=== PATIENT | male | born 1955 | race Caucasian/White ===

== ENCOUNTER 2019-04-04 08:50 | Outpatient (CLI) | payer OTHER, SELFPAY ==
--- NOTE | 2019-04-04 09:25 | CT_ITS ---
WS: [id number] CT ANGIOGRAPHY ABDOMEN AND PELVIS HISTORY: AAA TECHNIQUE: Contiguous axial images through the abdomen and pelvis. Precontrast, angiogram and postcon trast imaging submitted. Reformation images reviewed. All CT scans at [facility] use at le ast one of these dose optimization techniques: automated exposure control; mA and/or kV adjustment pe r patient size (includes targeted exams where dose is matched to clinical indication); or iterative r econstruction. CONTRAST: Omnipaque 350; 95 mL IV. DLP: 3137.72 mGycm COMPARISON: 01/07/2019 Chronic emphysematous changes at the lung bases. Small hiatal hernia. Normal size heart. Liver, splee n, gallbladder, pancreas and adrenal glands remain within normal limits. No adenopathy or fluid. No r enal obstruction or mass. Abdominal aorta: Since the prior examination endovascular stent grafting has been placed beginning at the level of the SMA and extending into the proximal common iliac arteries. [place] aneurysm measures 4.3 x 4.0 cm. No enlargement since the prior examination. No periaortic hematoma. No evidence for an endovascular leak. Gastric artery arises above the celiac axis. Celiac axis, SMA and renal arteries are patent. OWEN is not identified. LEFT renal vein is circumaortic. Decreased enhancement involving the lower pole of the RIGHT kidney is new. Small accessory renal marlena ry feeding the lower pole is identified and may have been partially obstructed. It still appears to b e patent on today's study. The main renal artery is patent. There is also an accessory renal artery o n the LEFT which is patent. Normal appearance of the GI tract. No obstruction. No free fluid in the pelvis. Post procedure change s at the RIGHT groin. CT/CT angio abdomen pelvis 82575 IMPRESSION: 1. Interval placement of an endovascular aortic graft with no complications or endoluminal leak. 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 2. New mild ischemic changes lower pole RIGHT kidney since 01/07/2019. Vascula r graft may be partially obstructing an accessory renal artery which extends to the lower pole.
[2019-04-04] MEDS: iohexol 350 mg/mL 100 mL Btl IV (09:45)
== END 2019-04-04 08:51 | disposition home or self-care (01) ==
LOC: RADWPI 08:55
PROVIDERS: Family Provider Emergency Medicine Emergency Medical Services; PCP Emergency Medicine Emergency Medical Services; Visit Provider Thoracic Surgery (Cardiothoracic Vascular Surgery)
DX: I71.4 Abdominal aortic aneurysm, without rupture (principal); N28.0 Ischemia and infarction of kidney
CPT/HCPCS: 74174; Q9967

== ENCOUNTER 2019-04-17 10:52 | Emergency (ER) | payer OTHER, SELFPAY ==
[2019-04-17] VITALS (8 sets, daily range): BP systolic 161–188; BP diastolic 99–121; PULSE 78–95; RESP 16–20; TEMP 36.3; O2SAT 95–96; BMI 32.3
--- NOTE | 2019-04-17 11:02 | PC.NURSE ---
Patient reports that he had a recent procedure Feb 26. Patient states he had an aortic aneurysm. Patient reports that he has never had high blood pressure in the past. Patient reports that this past Sunday his blood pressure began to increase. Patient states he has had shortness of breath and a headache along with the high blood pressure. Patient reports that he does not feel like the shortness of breath has anything to do with the high BP because he has had congestion. Patient states last Sunday he did have some blurry vision.
--- NOTE | 2019-04-17 11:23 | ED_ITS ---
Entered by Raquel Blount, acting as scribe for Selina Thomas MD, [facility] [place] Apr 17, 2019 10:52 HPI - General Adult General: Chief complaint: General Medical Stated complaint: high blood pressure Time Seen by Provider: 04/17/19 11:14 Source: patient and RN notes reviewed Mode of arrival: ambulatory Limitations: no limitations History of Present Illness: HPI narrative: 63 yo male presents to ED with complaints of hypertension. The patient was referred to the ED by his PCP Dr Smith/ALEM. The patient said he has never had high blood pressure before. His spouse is a nurse and has been checking his blood pressure. The patient had an abdominal AAA in February 26 2019 (femural approach). The spouse said last Sunday she found the patient slumped in his chair. She said his eyes were glassy and he had a headache. He said he has had a headache intermittently lately. He said he is congested. He has been hearing his heart beat in his ears. He said he will get squiggly lines in his vision and has been dizzy and light headed (was sent home from work on Sunday due to symptoms). He said his headache is sometimes across the front, on the L side, or on the R side. His spouse states the patient has intermittently ran a low grade fever at home, up to 100.6 (the patient is afebrile here). complaint: HTN Onset (ago): week(s) (1) Location: head and eyes Radiation: non-radiation Severity: severe Quality: aching Pain Consistency: intermittent Relieving factors: none Exacerbating factors: none Associated symptoms: Reports chest pain and headache(s); Deny dyspnea, nausea, rash, palpitations or vomiting Treatments prior to arrival: NSAID Review of Systems General: Reports: 10 or more systems reviewed and unremarkable except in HPI and below Const: Denies: chills or body aches ENMT: Denies: throat pain, enlarged tonsils, painful swallowing, hoarseness, mouth pain or swelling of lips/tongue Card: Reports: chest pain; Denies: palpitations, irregular heart rhythm, edema or swelling of feet/ankles Resp: Denies: shortness of breath, productive cough or non-productive cough GI: Denies: abdominal pain, nausea or vomiting : Denies: flank pain, painful urination, urinary frequency, urinary urgency or urinary hesitancy Musc: Reports: extremity pain (left shoulder), joint pain (left shoulder) and limited range of motion; Denies: neck pain, back pain or extremity swelling Skin/Breast: Denies: rash, itching or redness Neuro: Reports: headache Endo: Denies: excessive urination, excessive thirst or tired all the time PFSH ED PFSH: Statuses (acute, chronic, etc) shown below reflect problem list status as previously entered and may not be historically accurate Social History Smoking and tobacco status: former smoker Physical Exam Const: COMMON NORMALS: no apparent distress, average body habitus, oriented x3, no limitations, healthy appearing, alert and well nourished HENMT: COMMON NORMALS: normocephalic, head/scalp atraumatic and moist oral mucous membranes HEAD & SCALP: normocephalic and atraumatic Eye: COMMON NORMALS: PERRL, EOMs intact bilaterally, conjunctivae normal and no scleral icterus CONJUNCTIVA: Yes conjunctivae normal PUPIL: Yes PERRL Neck/C-Spine: COMMON NORMALS: full ROM, supple, no meningeal signs, no JVD and no carotid bruits Chest: COMMONS NORMALS: inspection of chest normal and palpation of chest normal Resp: COMMON NORMALS: normal respiratory effort, no retractions, no use of accessory muscles, clear to auscultation bilaterally and percussion normal AUSCULTATION: clear to auscultation bilaterally PERCUSSION: percussion normal Cardio: COMMON NORMALS: no JVD, regular rate, regular rhythm, S1 normal heart sound, S2 normal heart sound, no gallops, no clicks, no murmurs, no rub and peripheral pulses 2+ throughout RATE: regular rate RHYTHM: regular rhythm HEART SOUNDS: S1 normal and S2 normal PERIPHERAL PULSES: pulses 2+ throughout GI: COMMON NORMALS: normal to inspection, nondistended, normoactive bowel sounds, soft to palpation, non-tender, no hepatosplenomegaly, no masses and no bruits PALPATION: Yes soft and Yes no hepatosplenomegaly : COMMON NORMALS: Yes no CVA tenderness BLADDER/KIDNEY EXAM: Yes no CVA tenderness Back/Pelvis: COMMON NORMALS: no CVA tenderness Extremity: COMMON NORMALS: normal to inspection, full ROM, normal capillary refill, no calf tenderness and no pedal edema Neuro: COMMON NORMALS: oriented x3 SENSORIUM/ORIENTATION: Yes alert MENINGEAL SIGNS: Yes no meningeal signs Skin: COMMON NORMALS: no rashes or lesions noted, no wounds, skin turgor normal, no jaundice, no petechiae and no mottling GENERAL SKIN EXAM: no rashes or lesions noted and turgor normal Course Reevaluation(s): Reevaluation #1: Discussed his labs and imaging with the jill ent and his . Positive for influenza. Renal function decreased but not significant. TSH normal. His elevated BP may be secondary to being ill with influenza. He is out of the window for Tamiflu. Time: 14:03 Vital Signs: Vital signs: Vital Signs Temperature 97.4 F L 04/17/19 10:56 Pulse Rate 78 04/17/19 16:16 Respiratory Rate 16 04/17/19 16:16 Blood Pressure 177/108 04/17/19 16:16 Pulse Oximetry 95 04/17/19 16:16 MDM - General Adult MDM Narrative: Medical decision making narrative: 63-year-old male gentleman with no prior history of hypertension presents to the emergency department with complaints of elevated blood pressure. He had also had a low-grade fever for several days. Symptoms started generally about 1 week ago. Evaluation here in the emergency department was significant for positive influenza A. Blood pressure was also significantly elevated that required multiple doses of antihypertensives to bring it down to an acceptable level. The patient does not want to be started on an antihypertensive and will see his primary care provider tomorrow and have a discussion as to whether he needs to be started on something. He initially had a headache but that resolved following medication. EKG unremarkable, renal function without any alarming labs. Medical Records: Attestation: I reviewed the patient's medical records. Lab Data: Attestation: I reviewed the patient's lab results. Labs: Lab Results 04/17/19 04/17/19 04/17/19 Range/Units 11:10 11:10 12:06 WBC 6.2 (4.0-10.0) 10^3/ uL RBC 5.19 (4.1-5.3) 10^6/u L Hgb 15.7 (11.7-16.6) g/dL Hct 45.6 (42.0-52.0) % MCV 87.9 (80-94) fL MCH 30.3 (28.0-34.0) pg MCHC 34.4 (30.0-36.0) g/dL RDW 12.6 (12.1-15.1) % Plt Count 208 (130-400) 10^3/c mm MPV 9.7 (7.4-10.4) fL Neut % (Auto) 42.2 % Lymph % (Auto) 35.7 % Campbell % (Auto) 16.4 % Eos % (Auto) 5.1 % Baso % (Auto) 0.6 % Neut # (Auto) 2.6 (1.8-7.7) 10^3/u L Lymph # (Auto) 2.2 (0.8-4.8) 10^3/u L Campbell # (Auto) 1.0 H (0.2-0.9) 10^3/u L Eos # (Auto) 0.3 (0.0-0.8) 10^3/u L Baso # (Auto) 0.0 (0.0-0.1) 10^3/u L Nucleated RBC % (a uto) 0 % Nucleated RBCs # 0.0 /100WBC Sodium 139 (136-145) mmol/L Potassium 3.5 (3.5-5.1) mmol/L Chloride 101 (98-107) mmol/L Carbon Dioxide 25 (22-29) mmol/L Anion Gap 16.5 (5-19) BUN 10 (8-23) mg/dL Creatinine 1.1 (0.7-1.2) mg/dL GFR Calculation 67.8 L (90-130) mL/min Glucose 117 H (74-106) mg/dL Calcium 9.3 (8.5-10.5) mg/dL Total Bilirubin 0.7 (0.15-1.2) mg/dL AST 28 (0-40) U/L ALT 26 (0-41) U/L Alkaline Phosphata se 121 (40-130) IU/L Total Protein 8.1 (6.6-8.7) g/dL Albumin 4.0 (3.5-5.2) g/dL Globulin 4.1 (1.3-4.6) g/dL TSH 2.86 (0.27-4.20) uIU/ mL Urine Color (Yellow) Urine Appearance (CLEAR) Urine pH (5-7) Ur Specific Gravit y (1.005-1.030) Urine Protein (Negative) Urine Glucose (UA) (Normal) Urine Ketones (Negative) Urine Occult Blood (Negative) Urine Nitrate (Negative) Urine Bilirubin (NEGATIVE) Urine Urobilinogen (Negative) mg/dL Ur Leukocyte Lady ase (Negative) Urine RBC (0-2) /hpf Urine WBC (0-5) /hpf Ur Squamous Epith Cells (0-5) Urine Bacteria (NONE) Hyaline Casts Urine Mucus Influenza Type A A g Positive H (Negative) POC Influenza B Ag Negative (Negative) 04/17/19 Range/Units 12:08 WBC (4.0-10.0) 10^3/ uL RBC (4.1-5.3) 10^6/u L Hgb (11.7-16.6) g/dL Hct (42.0-52.0) % MCV (80-94) fL MCH (28.0-34.0) pg MCHC (30.0-36.0) g/dL RDW (12.1-15.1) % Plt Count (130-400) 10^3/c mm MPV (7.4-10.4) fL Neut % (Auto) % Lymph % (Auto) % Campbell % (Auto) % Eos % (Auto) % Baso % (Auto) % Neut # (Auto) (1.8-7.7) 10^3/u L Lymph # (Auto) (0.8-4.8) 10^3/u L Campbell # (Auto) (0.2-0.9) 10^3/u L Eos # (Auto) (0.0-0.8) 10^3/u L Baso # (Auto) (0.0-0.1) 10^3/u L Nucleated RBC % (a uto) % Nucleated RBCs # /100WBC Sodium (136-145) mmol/L Potassium (3.5-5.1) mmol/L Chloride (98-107) mmol/L Carbon Dioxide (22-29) mmol/L Anion Gap (5-19) BUN (8-23) mg/dL Creatinine (0.7-1.2) mg/dL GFR Calculation (90-130) mL/min Glucose (74-106) mg/dL Calcium (8.5-10.5) mg/dL Total Bilirubin (0.15-1.2) mg/dL AST (0-40) U/L ALT (0-41) U/L Alkaline Phosphata se (40-130) IU/L Total Protein (6.6-8.7) g/dL Albumin (3.5-5.2) g/dL Globulin (1.3-4.6) g/dL TSH (0.27-4.20) uIU/ mL Urine Color Yellow (Yellow) Urine Appearance Clear (CLEAR) Urine pH 5 (5-7) Ur Specific Gravit y 1.020 (1.005-1.030) Urine Protein 1+ H (Negative) Urine Glucose (UA) Norm (Normal) Urine Ketones 1+ H (Negative) Urine Occult Blood 2+ H (Negative) Urine Nitrate Negative (Negative) Urine Bilirubin Neg (NEGATIVE) Urine Urobilinogen 1 H (Negative) mg/dL Ur Leukocyte Lady ase Negative (Negative) Urine RBC 0-4 H (0-2) /hpf Urine WBC 0-4 H (0-5) /hpf Ur Squamous Epith Cells 0-4 H (0-5) Urine Bacteria Trace (NONE) Hyaline Casts 0-4 H Urine Mucus 1+ Influenza Type A A g (Negative) POC Influenza B Ag (Negative) Imaging Data^: CT Head: Radiologist's impression: [address] [address] [address] Scan Report Signed Patient: Hussein Bedoya Unit #: [id number] : 1955 Age/Sex: 63 / M ADM Date: 04/17/19 Loc: ER Room/Bed: Attending Dr: Ordering Provider/Ordering MD: Selina Thomas MD, [facility] [place] Date of Service: 04/17/19 Procedure(s): CT head wo con* [id number] Accession Number(s): [id number] Report Number: [id number] WS: [id number] CT HEAD NONCONTRAST HISTORY: hypertensive urgency, headache TECHNIQUE: Contiguous axial imaging performed through the brain in 2.5 mm imaging. Bone and soft tissue windows. Sagittal and coronal reformats reviewed. All CT scans at [facility] use at least one of these dose optimization techniques: automated exposure control; mA and/or kV adjustment per patient size (includes targeted exams where dose is matched to clinical indication); or iterative reconstruction. DLP: 874.71 mGy.cm COMPARISON: None available. No acute intracranial hemorrhage, midline shift or mass effect. No atrophy or prior infarcts or herniation. Ventricles: Normal size with no hydrocephalus. No inferior displacement of cerebellar tonsils. Paranasal sinuses: Mild mucoperiosteal thickening in the LEFT maxillary sinus. No air-fluid levels. Mastoid air cells: Well pneumatized. Calvarium and scalp: Skull is intact with no soft tissue edema or swelling. CT/CT head wo con* [id number] IMPRESSION: Negative head CT. Dictated By: Monique Levine DO Signed By: Monique Levine DO Signed Date/Time: 04/17/19 1246 DD/ CXR: Radiologist's impression: [address] [address] XRay Report Signed Patient: Hussein Bedoya Unit #: [id number] : 1955 Age/Sex: 63 / M ADM Date: 04/17/19 Loc: ER Room/Bed: Attending Dr: Ordering Provider/Ordering MD: Selina Thomas MD, [facility] [place] Date of Service: 04/17/19 Procedure(s): XR chest 2V* [id number] Accession Number(s): [id number] Report Number: [id number] WS: [id number] Chest 2 views, 04/17/2019 Clinical Data: hypertension Comparison: PA and lateral chest, 02/24/2019 Findings: No nodules, masses or effusions are seen. The heart is normal. The pulmonary vascularity is not increased. No pneumonia or pneumothorax is seen. The aortic arch and descending aorta are minimally tortuous XR/XR chest 2V* [id number] Impression: Atherosclerosis. Dictated By: Bernice Marino MD Signed By: Bernice Marino MD Signed Date/Time: 04/17/19 1219 DD/ EKG Data^: EKG 1: Attestation: I personally reviewed and interpreted this EKG as follows: EKG interpretation date: 04/17/19 EKG interpretation time: 12:44 Interpretation: Normal sinus rhythm. Heart rate 86. Incomplete right bundle branch block. Q waves in 2 3 aVF. Computer generated interpretation: Chest X-Ray 04/17/19 11:48 Impression: Atherosclerosis. Head CT 04/17/19 11:49 IMPRESSION: Negative head CT. Discharge Plan Discharge Patient Disposition: Home, Self-Care Clinical Impression: Influenza A, Asymptomatic hypertensive urgency Condition: Stable Discharge Orders: Discharge Order (Routine); Ordered 04/17/19 Ordered By: Selina Thomas Referrals: Toney Smith, [Primary Care Provider] - 04/18/19 (Hypertensive urgency) Patient Instructions: Influenza (ED), Hypertension (ED) Activity Restrictions/Additional Instructions: Return for any new or worsening symptoms. Follow-up with your primary care provider tomorrow to see if you need to be started on medicines for blood pressure. Drink plenty of fluids to keep well-hydrated. Take Tylenol or ibuprofen as needed for body aches or fever. Coding Level of Care Code ED Licensing Worker for Chg Fwd Exam Problem Focused The documentation recorded by the Mine oneal Valerie R, accurately reflects the service I personally performed and the decisions made by William knott Adegoke I, MD, [facility] [place] Apr 17, 2019 10:52
--- NOTE | 2019-04-17 11:48 | XR_ITS ---
WS: [id number] Chest 2 views, 04/17/2019 Clinical Data: hypertension Comparison: PA and lateral chest, 02/24/2019 Findings: No nodules, masses or effusions are seen. The heart is normal. The pulmonary vascularity is not increased. No pneumonia or pneumothorax is seen. The aortic arch and descending aorta are minima lly tortuous XR/XR chest 2V* [id number] Impression: Atherosclerosis.
--- NOTE | 2019-04-17 11:48 | ECG_ITS ---
Measurements Intervals [place] Rate: 86 P: 60 LA: 132 QRS: 48 QRSD: 117 T: 66 QT: 381 QTc: 457 SINUS RHYTHM INCOMPLETE RIGHT BUNDLE BRANCH BLOCK [90+ ms QRS DURATION, TERMINAL R IN V1/V2, 40+ ms S IN I/aVL/V4/V5/V6] POSSIBLE INFERIOR MYOCARDIAL INFARCTION , PROBABLY OLD [30 ms Q WAVE IN II/aVF] Compared to ECG 02/24/2019 09:02:13 Myocardial infarct finding now present Electronically Signed On 04-17-2019 17:36:30 POLITICAL RESEARCHER by Wayne Chamberlain M.D. [email or web address]
--- NOTE | 2019-04-17 11:49 | CT_ITS ---
WS: [id number] CT HEAD NONCONTRAST HISTORY: hypertensive urgency, headache TECHNIQUE: Contiguous axial imaging performed through the brain in 2.5 mm imaging. Bone and soft tiss ue windows. Sagittal and coronal reformats reviewed. All CT scans at [facility] use at ast one of these dose optimization techniques: automated exposure control; mA and/or kV adjustment pe r patient size (includes targeted exams where dose is matched to clinical indication); or iterative r econstruction. DLP: 874.71 mGy.cm COMPARISON: None available. No acute intracranial hemorrhage, midline shift or mass effect. No atrophy or prior infarcts or herniation. Ventricles: Normal size with no hydrocephalus. No inferior displacement of cerebellar tonsils. Paranasal sinuses: Mild mucoperiosteal thickening in the LEFT maxillary sinus. No air-fluid levels. Mastoid air cells: Well pneumatized. Calvarium and scalp: Skull is intact with no soft tissue edema or swelling. CT/CT head wo con* [id number] IMPRESSION: Negative head CT.
[2019-04-17] MEDS: diphenhydrAMINE 50 mg/mL SDV 1mL 25 MG IVP (11:57)
[2019-04-17] MEDS: ketorolac 30 mg/mL INJ 15 MG IVP (12:01)
[2019-04-17 12:25] LABS: Basophils % 0.6 %; Eosinophils # 0.3 10^3/uL (0.0-0.8); Eosinophils % 5.1 %; Hematocrit 45.6 % (42.0-52.0); Hemoglobin 15.7 g/dL (11.7-16.6); Lymphocytes # 2.2 10^3/uL (0.8-4.8); Lymphocytes % 35.7 %; Mean Corpuscular HGB Conc 34.4 g/dL (30.0-36.0); Mean Corpuscular Hemoglobin 30.3 pg (28.0-34.0); Mean Corpuscular Volume 87.9 fL (80-94); Mean Platelet Volume 9.7 fL (7.4-10.4); Monocytes % 16.4 %; Neutrophils # 2.6 10^3/uL (1.8-7.7); Neutrophils % 42.2 %; Nucleated Red Blood Cells % 0 %; Platelet Count 208 10^3/cmm (130-400); Red Blood Count 5.19 10^6/uL (4.1-5.3); Red Cell Distribution Width 12.6 % (12.1-15.1); White Blood Count 6.2 10^3/uL (4.0-10.0)
[2019-04-17 12:27] LABS: Protein Urine 1+ (Negative); Urine Appearance Clear (CLEAR); Urine Color Yellow (Yellow); pH Urine 5 (5-7)
[2019-04-17 12:28] LABS: Add Urine Microscopic? YES; Bilirubin Urine Neg (NEGATIVE); Blood Urine 2+ (Negative); Glucose Urine UA Norm (Normal); Ketones Urine 1+ (Negative); Leukocyte Esterase Urine Negative (Negative); Nitrate Urine Negative (Negative); Urobilinogen Urine 1 mg/dL (Negative)
[2019-04-17 12:36] LABS: Influenza A by IFA Positive (Negative); Influenza B by IFA Negative (Negative)
[2019-04-17 12:40] LABS: Add Urine Culture? No; Bacteria Urine TRACE; Hyaline Casts Urine 0-4; Mucus Urine 1+; RBC Urine 0-4 /hpf (0-2); Squamous Epithelial Cell Urine 0-4 (0-5); WBC Urine 0-4 /hpf (0-5)
[2019-04-17 12:50] LABS: Alanine Aminotransferase 26 U/L (0-41); Alkaline Phosphatase 121 IU/L (40-130); Anion Gap 16.5 (5-19); Aspartate Amino Transferase 28 U/L (0-40); Blood Urea Nitrogen 10 mg/dL (8-23); Calcium 9.3 mg/dL (8.5-10.5); Carbon Dioxide 25 mmol/L (22-29); Chloride 101 mmol/L (98-107); Globulin 4.1 g/dL (1.3-4.6); Glomerular Filtration Rate 67.8 mL/min (90-130); Glucose 117 mg/dL (74-106); Potassium 3.5 mmol/L (3.5-5.1); Sodium 139 mmol/L (136-145); Thyroid Stimulating Hormone 2.86 uIU/mL (0.27-4.20); Total Bilirubin 0.7 mg/dL (0.15-1.2); Total Protein 8.1 g/dL (6.6-8.7)
[2019-04-17] MEDS: cloNIDine 0.1 mg Tablet PO (14:10)
[2019-04-17] MEDS: metoprolol tartrate 1 mg/1 mL SDV 5 mL 5 MG IV ×2 (14:46→15:21)
[2019-04-17] MEDS: hyDRALAzine 20 mg/mL INJ 1 mL 10 MG IVP (16:13)
== END 2019-04-17 17:02 | disposition home or self-care (01) ==
PROVIDERS: Emergency Provider Family Medicine; Family Provider Emergency Medicine Emergency Medical Services; PCP Emergency Medicine Emergency Medical Services
DX: J10.1 Influenza due to other identified influenza virus with other respiratory manifestations (principal); I16.0 Hypertensive urgency; Z87.891 Personal history of nicotine dependence
CPT/HCPCS: 70450; 71046; 80053; 81001; 84443; 85025; 87804; 93005; 96374; 96375; 96376; 99283; 99285; J0360; J1200; J1885; J3490

== ENCOUNTER 2019-07-04 07:56 | Outpatient (CLI) | payer OTHER, SELFPAY ==
--- NOTE | 2019-07-04 08:00 | USCV_ITS ---
Hussein Bedoya Age: 63 Gender: M : 1955 Exam Date: 07/04/2019 08:11 Ordering Phys: Technologist: Belle Denise Exam Location: [facility] [place] Indication: AAA HISTORY: Diameter (cm) AP x Transverse x Length Velocity (cm/s) Waveform Prox Aorta: 2.54 x 2.54 x 96.60 Mid Aorta: 2.36 x 2.48 x 71.40 Distal Aorta: 4.23 x 4.65 x 64.10 Right Iliac Prox: 1.29 x 1.35 x 176.60 Left Iliac Prox: 1.17 x 1.37 x 336.80 Stent Prox Landing 2.01 x 2.13 x 54.60 Aneurysmal Sac Max 4.24 x 4.68 x 5.80 Lt Lat Sac Dim 0.92 Rt Lat Sac Dim 0.35 Stent Dist Landing x 133.00 x Right Iliac Stent x x Left Iliac Stent x x Right Renal Art Left Renal Art FINDINGS: Aortic stent graft is measuring 2.01 x 2.13 cm. The infrarenal aortic aneurysm sac is measuring 4.23 x 4.68 cm at its maximal diameter Moderate diffuse plaques were noted in the abdominal aorta. CONCLUSIONS The aortic stent graft appears to be patent with an aneurysm sac measuring 4.24 x 4.68 at its maximum diameter in the infrarenal segment of the aorta. The proximal common iliac arteries were found to be mildly ectatic. No evidence of endoleak, based on the color flow Doppler examination. Moderate diffuse plaques in the abdominal aorta. No previous studies are available for comparison Dr Tammy Linares MD [facility] (Electronically Signed) Final Date: 07 July 2019 14:37 S
== END 2019-07-04 07:57 | disposition home or self-care (01) ==
LOC: RADWPI 08:01
PROVIDERS: Family Provider Emergency Medicine Emergency Medical Services; PCP Emergency Medicine Emergency Medical Services; Visit Provider Thoracic Surgery (Cardiothoracic Vascular Surgery)
DX: I71.4 Abdominal aortic aneurysm, without rupture (principal); Z95.818 Presence of other cardiac implants and grafts
CPT/HCPCS: 76706

== ENCOUNTER 2019-07-28 09:25 | Emergency (ER) | payer OTHER, SELFPAY ==
[2019-07-28] VITALS (8 sets, daily range): BP systolic 97–149; BP diastolic 57–96; PULSE 60–108; RESP 17–18; TEMP 36.4; O2SAT 94–97; BMI 31.8
--- NOTE | 2019-07-28 10:07 | CT_ITS ---
WS: [id number] CT ABDOMEN AND PELVIS WITH CONTRAST HISTORY: lower abdominal pain; hx of aortic aneurysm repair TECHNIQUE: Imaging performed of the abdomen and pelvis with IV contrast. Single phase imaging of the abdomen. Coronal and sagittal reformats are submitted. All CT scans at [facility] use at least one of these dose optimization techniques: automated exposure control; mA and/or kV adjustment per patient size (includes targeted exams where dose is matched to clinical indication); or iterativ e reconstruction. IV CONTRAST: Visipaque 320; 95 mL IV. Oral contrast: No DLP: 1561.35 mGy.cm COMPARISON: 04/04/2019 Lower thorax: Chronic emphysema. No pneumonia. Heart is normal size. Small hiatal hernia. Liver/biliary system: Normal size with no intrahepatic dilatation. Gallbladder: Normal. No gallstones or wall thickening. No pericholecystic fluid. Pancreas: Normal. Spleen: Normal. Adrenal glands: Normal. Right kidney: Mild perinephric stranding. Improved enhancement in the lower pole but there is mild at rophy of the very inferior lower pole cortex. May be related to prior ischemia. Left kidney: Mild perinephric stranding with normal enhancement. Aorta: Status post endovascular graft repair. There is no periaortic hematoma. No enhancement into th e surrounding thrombus which is anterior. Graft is patent. Lymphadenopathy: None. Free fluid: None. GI tract: Normal appendix. Moderate fecal retention in the ascending colon. There is tortuosity of th e colon. Circumferential mucosal thickening involving a long segment of the LEFT colon beginning at t he splenic flexure to nearly the sigmoid. There is a moderate amount of pericolonic stranding and madina ma. Moderate narrowing of the lumen at the splenic flexure. No free air or perforation is appreciated . Abdominal wall: Unremarkable abdominal wall. No hernia. Pelvis: Tiny amount of free fluid in the pelvis. Urinary bladder is negative. Bones: Lumbar spondylitic changes. No destruction. CT/CT abdomen pelvis w con* [id number] IMPRESSION: 1. Significant, long segment mucosal thickening and edema extending from the s plenic flexure to the sigmoid. Probably colitis due to its long segment involve ment and no adjacent diverticula. No abscess or perforation at this time. Due t o the extent of involvement colonoscopy or repeat CT imaging after acute episod e resolves is recommended to exclude underlying neoplasm. 2. Prior endovascular aortic graft repair with no apparent complications. 3. Small hiatal hernia. 4. Chronic emphysema.
--- NOTE | 2019-07-28 10:07 | USCV_ITS ---
Hussein Bedoya Age: 63 Gender: M : 1955 Exam Date: 07/28/2019 10:57 Ordering Phys: Merary Rhodes Technologist: Liz Aldrich [place] [facility] [place]: LT FOOT NUMB AND COLD. PT HAD AAA STENT IN MAR 06 Risk Factors: Unknown Previous Vascular Surgery: AAA WITH STENT RIGHT LEFT BP: 120.0 / 101.00 BP: / 0 Waveform Velocity (cm/s) Velocity (cm/s) Waveform Triphasic 70.3 Iliac Prox 29.0 Monophasic Iliac Mid 29.1 Monophasic Iliac Distal 23.6 Monophasic Triphasic 49.7 TRANSPORT COMPANY MANAGER 26.0 Monophasic SFA Prox 16.9 Monophasic Triphasic 61.1 SFA Mid 13.4 Monophasic SFA Dist 14.1 Monophasic Triphasic POP Monophasic 46.1 8.0 Biphasic 42.6 AIRLINE STATION AGENT 11.6 Monophasic DPA N/A FINDINGS CARMELO NOT DONE. THE FLOW IN THE LT. AIRLINE STATION AGENT IS SO VERY LITTLE. The left iliac artery was found to have a velocity of 3 9 9 cm/s just beyond the stent graft. Below this segment, there was a low velocity continuous waveform which is persistent throughout the femoral artery.The popliteal and infrapopliteal vessels were found to have monophasic low velocity waveforms. No Doppler signals were noted in the left dorsalis pedis artery. The right iliac, femoral and popliteal arteries were found to have mostly triphasic flow. CONCLUSIONS 1. 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 No flow signals in the left dorsalis pedis artery. 2. Normal/near normal Doppler flow pattern in the right iliac and femoral arteries. 3. The abdominal aneurysm sac measuring 4.209 x 3.8 cm with possibly patent stent graft 4. No similar previous studies are available for comparison Dr Tammy Linares MD [facility] (Electronically Signed) Final Date: 28 Jul 2019 14:11 S
--- NOTE | 2019-07-28 10:09 | ED_ITS ---
HPI - Abdominal Pain General: Chief Complaint: Abdominal Pain Stated Complaint: GI BLEED/ BP DROP/ LEFT LEG USE LOSS Time Seen by Provider: 07/28/19 09:42 Source: patient Mode of arrival: ambulatory Limitations: no limitations History of Present Illness: HPI narrative: Patient is a 63-year-old male who presents to ED today with a few various complaints. His first complaint is that he has been having intermittent numbness and tingling to his left lower extremity over the past 3 weeks. He states he has had about 3 episodes total of this-episodes usually last a few hours and subside on their own. He states his leg feels shaky and reports it is difficult to use. He states the numbness mainly seems to affect the posterior aspect of his thigh and calf. He does admit to some chronic lower back pains. He does report his left leg seems cooler and has noticed this over the past week. He states that the main complaint that made him come in is lower abdominal pain. He states he has had intermittent episodes of lower abdominal pain over the past 20 years and will get flareups every 1 to 2 years. He states his typical flareup is pain followed by gurgling in his abdomen and then usually will have a large bowel movement sometimes with bright red blood (all within a 1-2 day period). He states that the episode today began on and seemed to continue into Sunday and over the weekend which made him concerned. He states he did have approximately a fourth of a cup per stool of bright red blood with clots. Patient reports his last colonoscopy was 4 years ago. They found 1 polyp that ended up being benign. Previous abdominal surgeries include an abdominal aortic graft for an aneurysm that was placed in February [address] Montes. He reportedly just had a sonogram 2 weeks ago for follow up. MD elicited complaint: abdominal pain Onset (ago): day(s) Pain Consistency: intermittent Quality: cramping Exacerbating factors: nothing Relieving factors: nothing Associated Symptoms: Reports hematochezia; Denies change in stool character, chills, coffee ground emesis, dysuria, fever(s), heartburn, hematemesis, melena, nausea, syncope and vomiting Review of Systems Const: Reports: change in appetite; Denies: fever, chills, body aches, change in weight, fatigue or malaise Eyes: Denies: change in vision, blurry vision, photophobia, floaters or seeing flashes ENMT: Denies: throat pain, enlarged tonsils or painful swallowing Card: Denies: chest pain, palpitations, irregular heart rhythm, edema, swelling of feet/ankles, lightheadedness, syncope, pre-syncope, shortness of breath on exertion, shortness of breath when lying down, leg pain with exertion or bluish discoloration of hands/feet Resp: Denies: shortness of breath, productive cough, non-productive cough, coughing up blood or chest congestion GI: Reports: abdominal pain and blood in stool; Denies: nausea, vomiting, vomiting blood, coffee grounds in vomit, difficulty swallowing, heartburn/indigestion, feeling full early, painful bowel movements, rectal pain, rectal swelling, rectal itching, change in stool character, black tarry stool, mucus in stool, white/light colored stool or fatty stool : Denies: flank pain, difficulty urinating, painful urination, urinary frequency, urinary urgency or urinary hesitancy Musc: Reports: back pain (chronic low back pain); Denies: neck pain, extremity pain or extremity swelling Skin/Breast: Denies: rash Neuro: Reports: numbness in extremities (intermittent L LE); Denies: headache, lack of coordination, frequent falls, dizziness or slurred speech PFSH ED PFSH: Medical History (Updated 07/28/19 @ 15:34 by MAURY Allison) AAA (abdominal aortic aneurysm) Surgical History (Updated 05/08/19 @ 16:00 by Gurjit Montes MD) H/O endovascular stent graft for abdominal aortic aneurysm Social History Smoking and tobacco status: former smoker Alcohol intake: never Physical Exam Const: COMMON NORMALS: no apparent distress, average body habitus, oriented x3, no limitations, healthy appearing, alert and well nourished ORIENTATION/CONSCIOUSNESS: Yes oriented to person, Yes oriented to place and Yes oriented to time Resp: COMMON NORMALS: normal respiratory effort and clear to auscultation bilaterally AUSCULTATION: clear to auscultation bilaterally Cardio: COMMON NORMALS: regular rate and regular rhythm RATE: regular rate RHYTHM: regular rhythm GI: COMMON NORMALS: normal to inspection, nondistended, normoactive bowel sounds, soft to palpation, no hepatosplenomegaly and no masses PALPATION: Yes soft, Yes tender (throughout lower abdomen) and Yes no hepatosplenomegaly RECTAL EXAM: Yes visual inspection normal and Yes heme positive stool : COMMON NORMALS: Yes no CVA tenderness BLADDER/KIDNEY EXAM: Yes no CVA tenderness Back/Pelvis: COMMON NORMALS: no CVA tenderness and straight leg raise negative bilaterally THORACIC SPINE/UPPER BACK: Yes normal to inspection and Yes thoracic ROM normal LUMBAR SPINE/LOWER BACK: Yes lumbar spinal tenderness Lumbar spinal tenderness location: L4 and L5 Extremity: COMMON NORMALS: full ROM OTHER: pt has weak PT pulse on left; no DP pulse felt; L foot is cooler than when compared to the R; sensation is intact; he does not complain of any pain or numbness/tingling at this time Neuro: KYE COMA SCALE: document GCS findings Hawthorne coma scale eye opening: Spontaneous Hawthorne coma scale verbal response: Orientated Kye coma scale motor response: Obey commands Hawthorne coma scale total score: 15 COMMON NORMALS: oriented x3, moves all extremities, no focal motor deficits, no sensory deficits noted and gait normal SENSORIUM/ORIENTATION: Yes alert, Yes oriented to person, Yes oriented to place and Yes oriented to time Skin: COMMON NORMALS: no rashes or lesions noted and no wounds GENERAL SKIN EXAM: no rashes or lesions noted Course Vital Signs: Vital signs: Vital Signs Temperature 97.6 F 07/28/19 09:33 Pulse Rate 90 07/28/19 16:03 Respiratory Rate 18 07/28/19 16:03 Blood Pressure 149/96 07/28/19 16:03 Pulse Oximetry 97 07/28/19 16:03 MDM - Abdominal Pain MDM Narrative: Medical decision making narrative: Patient initially had a CT abdomen/pelvis performed due to his lower abdominal pain and blood in his stool. His hemoccult was positive. His H&H and vitals are stable. On this CT scan it showed significant long segment mucosal thickening and edema extending from his splenic flexure to the sigmoid probably related to colitis. The radiologist recommended a colonoscopy or repeat imaging after acute episode resolves due to the extent to exclude neoplasm. I ordered an arterial ultrasound of his left lower extremity due to patient's symptoms and coolness to the extremity. Ultrasound showed high-grade stenosis of his left iliac artery and monophasic flow throughout his extremity. Due to these findings patient ultimately needed a CTA aorta with runoff. He was given fluids as we had to repeat contrast. 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 It showed three-vessel runoff to the left ankle and into the left calf. There were problems visualizing the right side as the images were taken prior to the contrast reaching the area. Patient has no right lower extremity symptoms. I spoke to Dr. Montes (through the [employer]) who stated he would see patient in office this week. Ultimately patient does have monophasic flow in his extremity. He currently is not complaining of any pain/numbness/tingling. Spoke to [facility] regarding the CTA who assured me that his colitis does not appear to be from any form of ischemia. He is ablet to tolerate PO therefore I believe we can treat this outpt with cipro/flagyl. He was made aware of CT findings and needs follow up once episode resolves for colonoscopy or repeat imaging. He is aware of his appointment with Dr. Montes on . Lab Data: Labs: Lab Results 07/28/19 07/28/19 07/28/19 Range/Units 10:26 10:26 10:26 WBC 17.6 H (4.0-10.0) 10^3/ uL RBC 4.88 (4.1-5.3) 10^6/u L Hgb 15.0 (11.7-16.6) g/dL Hct 43.5 (42.0-52.0) % MCV 89.1 (80-94) fL MCH 30.7 (28.0-34.0) pg MCHC 34.5 (30.0-36.0) g/dL RDW 14.0 (12.1-15.1) % Plt Count 242 (130-400) 10^3/c mm MPV 9.7 (7.4-10.4) fL Neut % (Auto) 74.6 % Lymph % (Auto) 15.8 % Maury % (Auto) 7.5 % Eos % (Auto) 1.2 % Baso % (Auto) 0.4 % Neut # (Auto) 13.1 H (1.8-7.7) 10^3/u L Lymph # (Auto) 2.8 (0.8-4.8) 10^3/u L Maury # (Auto) 1.3 H (0.2-0.9) 10^3/u L Eos # (Auto) 0.2 (0.0-0.8) 10^3/u L Baso # (Auto) 0.1 (0.0-0.1) 10^3/u L Nucleated RBC % (a uto) 0 % Nucleated RBCs # 0.0 /100WBC PT 14.00 H (10.5-13.3) SECO NDS INR 1.04 (0.8-1.2) APTT 29.7 (23.9-36.7) SECO NDS Sodium 137 (136-145) mmol/L Potassium 4.0 (3.5-5.1) mmol/L Chloride 98 (98-107) mmol/L Carbon Dioxide 25 (22-29) mmol/L Anion Gap 18.0 (5-19) BUN 15 (8-23) mg/dL Creatinine 1.3 H (0.7-1.2) mg/dL GFR Calculation 55.9 L (90-130) mL/min Glucose 118 H (65-115) mg/dL Calculated Osmolal ity 281 L (285-295) mOsm/k g Calcium 9.3 (8.5-10.5) mg/dL Total Bilirubin 0.9 (0.15-1.2) mg/dL AST 14 (0-40) U/L ALT 13 (0-41) U/L Alkaline Phosphata se 85 (40-130) IU/L Total Protein 7.1 (6.6-8.7) g/dL Albumin 3.9 (3.5-5.2) g/dL Globulin 3.2 (1.3-4.6) g/dL Urine Color (Yellow) Urine Appearance (CLEAR) Urine pH (5-7) Ur Specific Gravit y (1.005-1.030) Urine Protein (Negative) Urine Glucose (UA) (Normal) Urine Ketones (Negative) Urine Blood (Negative) Urine Nitrate (Negative) Urine Bilirubin (NEGATIVE) Urine Urobilinogen (Negative) mg/dL Ur Leukocyte Lady ase (Negative) 07/28/19 Range/Units 12:00 WBC (4.0-10.0) 10^3/ uL RBC (4.1-5.3) 10^6/u L Hgb (11.7-16.6) g/dL Hct (42.0-52.0) % MCV (80-94) fL MCH (28.0-34.0) pg MCHC (30.0-36.0) g/dL RDW (12.1-15.1) % Plt Count (130-400) 10^3/c mm MPV (7.4-10.4) fL Neut % (Auto) % Lymph % (Auto) % Maury % (Auto) % Eos % (Auto) % Baso % (Auto) % Neut # (Auto) (1.8-7.7) 10^3/u L Lymph # (Auto) (0.8-4.8) 10^3/u L Maury # (Auto) (0.2-0.9) 10^3/u L Eos # (Auto) (0.0-0.8) 10^3/u L Baso # (Auto) (0.0-0.1) 10^3/u L Nucleated RBC % (a uto) % Nucleated RBCs # /100WBC PT (10.5-13.3) SECO NDS INR (0.8-1.2) APTT (23.9-36.7) SECO NDS Sodium (136-145) mmol/L Potassium (3.5-5.1) mmol/L Chloride (98-107) mmol/L Carbon Dioxide (22-29) mmol/L Anion Gap (5-19) BUN (8-23) mg/dL Creatinine (0.7-1.2) mg/dL GFR Calculation (90-130) mL/min Glucose (65-115) mg/dL Calculated Osmolal ity (285-295) mOsm/k g Calcium (8.5-10.5) mg/dL Total Bilirubin (0.15-1.2) mg/dL AST (0-40) U/L ALT (0-41) U/L Alkaline Phosphata se (40-130) IU/L Total Protein (6.6-8.7) g/dL Albumin (3.5-5.2) g/dL Globulin (1.3-4.6) g/dL Urine Color Yellow (Yellow) Urine Appearance Clear (CLEAR) Urine pH 5.0 (5-7) Ur Specific Gravit y 1.010 (1.005-1.030) Urine Protein Neg (Negative) Urine Glucose (UA) Norm (Normal) Urine Ketones Negative (Negative) Urine Blood Neg (Negative) Urine Nitrate Negative (Negative) Urine Bilirubin Neg (NEGATIVE) Urine Urobilinogen Norm (Negative) mg/dL Ur Leukocyte Lady ase Negative (Negative) Imaging Data ^: CT Abd/Pel: Radiologist's impression: [address] [place] [address] CT Scan Report Signed Patient: Hussein Bedoya Unit #: [id number] : 1955 Age/Sex: 63 / M ADM Date: 07/28/19 Loc: ER Room/Bed: Attending Dr: Ordering Provider/Ordering MD: Merary Rhodes Date of Service: 07/28/19 Procedure(s): CT abdomen pelvis w con* [id number] Accession Number(s): [id number] Report Number: [id number] WS: [id number] CT ABDOMEN AND PELVIS WITH CONTRAST HISTORY: lower abdominal pain; hx of aortic aneurysm repair TECHNIQUE: Imaging performed of the abdomen and pelvis with IV contrast. Single phase imaging of the abdomen. Coronal and sagittal reformats are submitted. All CT scans at [facility] use at least one of these dose optimization techniques: automated exposure control; mA and/or kV adjustment per patient size (includes targeted exams where dose is matched to clinical indication); or iterative reconstruction. IV CONTRAST: Visipaque 320; 95 mL IV. Oral contrast: No DLP: 1561.35 mGy.cm COMPARISON: 04/04/2019 Lower thorax: Chronic emphysema. No pneumonia. Heart is normal size. Small hiatal hernia. Liver/biliary system: Normal size with no intrahepatic dilatation. Gallbladder: Normal. No gallstones or wall thickening. No pericholecystic fluid. Pancreas: Normal. Spleen: Normal. Adrenal glands: Normal. Right kidney: Mild perinephric stranding. Improved enhancement in the lower pole but there is mild atrophy of the very inferior lower pole cortex. May be related to prior ischemia. Left kidney: Mild perinephric stranding with normal enhancement. Aorta: Status post endovascular graft repair. There is no periaortic hematoma. No enhancement into the surrounding thrombus which is anterior. Graft is patent. Lymphadenopathy: None. Free fluid: None. GI tract: Normal appendix. Moderate fecal retention in the ascending colon. There is tortuosity of the colon. Circumferential mucosal thickening involving a long segment of the LEFT colon beginning at the splenic flexure to nearly the sigmoid. There is a moderate amount of pericolonic stranding and edema. Moderate narrowing of the lumen at the splenic flexure. No free air or perforation is appreciated. Abdominal wall: Unremarkable abdominal wall. No hernia. Pelvis: Tiny amount of free fluid in the pelvis. Urinary bladder is negative. Bones: Lumbar spondylitic changes. No destruction. CT/CT abdomen pelvis w con* [id number] IMPRESSION: 1. Significant, long segment mucosal thickening and edema extending from the splenic flexure to the sigmoid. Probably colitis due to its long segment involvement and no adjacent diverticula. No abscess or perforation at this time. Due to the extent of involvement colonoscopy or repeat CT imaging after acute episode resolves is recommended to exclude underlying neoplasm. 2. Prior endovascular aortic graft repair with no apparent complications. 3. Small hiatal hernia. 4. Chronic emphysema. Dictated By: Monique Levine DO Signed By: Monique Levine DO Signed Date/Time: 07/28/19 1200 DD/ 1152 US arterial L LE: Radiologist's impression: FINDINGS CARMELO NOT DONE. 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 The left iliac artery was found to have a velocity of 3 9 9 cm/s just beyond the stent graft. Below this segment, there was a low velocity continuous waveform which is persistent throughout the femoral artery.The popliteal and infrapopliteal vessels were found to have monophasic low velocity waveforms. No Doppler signals were noted in the left dorsalis pedis artery. The right iliac, femoral and popliteal arteries were found to have mostly triphasic flow. CONCLUSIONS 1. 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 No flow signals in the left dorsalis pedis artery. 2. Normal/near normal Doppler flow pattern in the right iliac and femoral arteries. 3. The abdominal aneurysm sac measuring 4.209 x 3.8 cm with possibly patent stent graft 4. No similar previous studies are available for comparison Dr Tammy Linares MD [facility] (Electronically Signed) Final Date: 28 Jul 2019 14:11 CTA aorta with run off: Radiologist's impression: [address] [place] [address] CT Scan Report Signed Patient: Hussein Bedoya Unit #: [id number] : 1955 Acct#:[id number] Age/Sex: 63 / M ADM Date: 07/28/19 Loc: ER Room/Bed: Attending Dr: Ordering Provider/Ordering MD: Merary Rhodes Date of Service: 07/28/19 Procedure(s): CT angio abd aorta runof [id number] Accession Number(s): [id number] Report Number: [id number] PROCEDURE INFORMATION: Exam: CTA Angiogram of the Abdominal Aorta and Bilateral Lower Extremities (Run-off) With IV Contrast Exam date and time: 07/28/2019 12:57 PM Age: 63 years old Clinical indication: Abdominal pain; Acute; Prior surgery; Surgery date: 6+ months; Surgery type: Aortic graft; Additional info: Aortic graft; L le monophasic flow/numbness TECHNIQUE: Imaging protocol: CT angiogram of the abdominal aorta, pelvis and bilateral lower extremities with IV iodinated contrast. 3D rendering: MIP and/or 3D reconstructed images were created by the technologist. Radiation optimization: All CT scans at this facility use at least one of these dose optimization techniques: automated exposure control; mA and/or kV adjustment per patient size (includes targeted exams where dose is matched to clinical indication); or iterative reconstruction. Contrast material: VISI 320; Contrast volume: 95 ml; Contrast route: IV; COMPARISON: CT angio abdomen pelvis [id number] 04/04/2019 9:38 AM RADIATION DOSE METRICS: Total DLP: 2186.19 mGy-cm FINDINGS: Aorta: Slightly decreased 4.5 cm abdominal aortic aneurysm is measured on the sagittal images when compared with the previous exam of 4.6 cm. Celiac trunk and mesenteric arteries: Separate origin of the left hepatic artery from the abdominal aorta just superior to the celiac axis origin. Normal variant. Renal arteries: No occlusion or significant stenosis. Right iliac arteries: No occlusion or significant stenosis. Right femoral/popliteal arteries: The right calf and foot were imaged before the arterial contrast reached this area with no visible contrast in the distal popliteal artery and trifurcation arteries. Correlation with pulses and or Doppler exam may be helpful to document flow in this area which was not imaged on CTA runoff. 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 Continued stricture of the proximal aspect of the left common iliac artery endovascular stent. Left femoral/popliteal arteries: No occlusion or significant stenosis. Left infrapopliteal arteries: Three-vessel runoff to the left ankle with contrast in the left calf area. Liver: No mass. Gallbladder and bile ducts: Unremarkable. No calcified stones. No ductal dilation. Pancreas: Unremarkable. No mass. No ductal dilation. Spleen: One or more stable accessory splenules. Adrenals: Normal. No mass. Kidneys and ureters: Continued perfusion defect in the inferior pole right kidney. Stomach and bowel: Interval appearance of mild bowel wall thickening in the left colon with mild inflammation in pericolic fat consistent with mild infectious colitis, microvascular ischemic colitis or inflammatory bowel autoimmune colitis. Appendix: No evidence of appendicitis. Bladder: Unremarkable. No mass. Reproductive: Unremarkable as visualized. Intraperitoneal space: Interval free fluid in the dependent portion of the pelvis which is abnormal for a male. Probably secondary to colitis. Lymph nodes: No lymphadenopathy. Bones/joints: No acute fracture. No dislocation. Soft tissues: Unremarkable. Other veins: One or more calcified pelvic phleboliths. CT/CT angio abd aorta runof [id number] IMPRESSION: 1. 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 2. Continued stricture of the proximal aspect of the left common iliac artery endovascular stent. 3. Interval appearance of mild bowel wall thickening in the left colon with mild inflammation in pericolic fat consistent with mild infectious colitis, microvascular ischemic colitis or inflammatory bowel autoimmune colitis. 4. Interval free fluid in the dependent portion of the pelvis which is abnormal for a male. Probably secondary to colitis. 5. Continued perfusion defect in the inferior pole right kidney. 6. Slightly decreased 4.5 cm abdominal aortic aneurysm as measured on the sagittal images when compared with the previous exam of 4.6 cm. 7. The right calf and foot were imaged before the arterial contrast reached this area with no visible contrast in the distal right popliteal artery and trifurcation arteries. Correlation with pulses and or Doppler exam may be helpful to document flow in this area which was not imaged on CTA runoff. 8. Three-vessel runoff to the left ankle with contrast in the left calf area. Radiation Dose CTDIVOL = (mGy): DLP = 2186.19 (mGy-cm) Dictated By: Vipin Mclaughlin MD Signed By: Vipin Mclaughlin MD Signed Date/Time: 07/28/191425 DD/ 23 Discharge Plan Discharge Patient Disposition: Home, Self-Care Clinical Impression: Iliac artery occlusion, left, Colitis Condition: Stable Prescriptions: New hydrocodone-acetaminophen 5-325 mg tablet 1 tab PO Q6H PRN (Reason: pain) Qty: 14 RF: 0 Flagyl 500 mg tablet 500 mg PO BID 7 Days Qty: 14 RF: 0 Cipro 500 mg tablet 500 mg PO Q12H Qty: 14 RF: 0 No Action lisinopril 10 mg tablet 10 mg PO DAILY RF: 0 pantoprazole 40 mg tablet,delayed release (DR/EC) 40 mg PO BID RF: 0 atorvastatin 40 mg tablet 40 mg PO DAILY RF: 0 cyclobenzaprine 10 mg tablet 10 mg PO TID PRN (Reason: Muscle Spasm) RF: 0 fluticasone propionate [Allergy Relief (fluticasone)] 50 mcg/actuation spray,suspension 2 spray INTRANASAL DAILY PRN (Reason: ALLERGY SYMPTOMS) RF: 0 aspirin 81 mg tablet,delayed release (DR/EC) 81 mg PO DAILY RF: 0 Multiple Vitamins Tablet 1 tab PO DAILY RF: 0 B-Complex Tablet 1 tab PO DAILY RF: 0 Discharge Orders: Discharge Order (Routine); Ordered 07/28/19 Ordered By: Merary Rhodes Referrals: Toney Smith DO [Primary Care Provider] - Gurjit Montes MD [Physician] - 07/31/19 3:00 pm Activity Restrictions/Additional Instructions: As discussed you have an appointment to see Dr. Montes on at 3 PM. It is imperative that you keep this appointment. Begin taking your antibiotics immediately. As we discussed you had extensive colitis and we recommend obtaining a repeat colonoscopy or repeat CT scan after this episode resolves to make sure this is not neoplasm/malignancy. Return to the emergency department immediately for worsening left leg pain, coldness/pale, worsening abdominal pain, unable to keep down your medications, or any other concerns you may have. Discharge Date/Time: 07/28/19 16:04 Coding Level of Care Code ED Business Control Specialist for Chg Fwd Exam Comprehensive
[2019-07-28 10:34] LABS: Basophils # 0.1 10^3/uL (0.0-0.1); Basophils % 0.4 %; Eosinophils # 0.2 10^3/uL (0.0-0.8); Eosinophils % 1.2 %; Hematocrit 43.5 % (42.0-52.0); Lymphocytes # 2.8 10^3/uL (0.8-4.8); Lymphocytes % 15.8 %; Mean Corpuscular HGB Conc 34.5 g/dL (30.0-36.0); Mean Corpuscular Hemoglobin 30.7 pg (28.0-34.0); Mean Corpuscular Volume 89.1 fL (80-94); Mean Platelet Volume 9.7 fL (7.4-10.4); Monocytes # 1.3 10^3/uL (0.2-0.9); Monocytes % 7.5 %; Neutrophils # 13.1 10^3/uL (1.8-7.7); Neutrophils % 74.6 %; Nucleated Red Blood Cells % 0 %; Platelet Count 242 10^3/cmm (130-400); Red Blood Count 4.88 10^6/uL (4.1-5.3); White Blood Count 17.6 10^3/uL (4.0-10.0)
[2019-07-28 10:44] LABS: Alanine Aminotransferase 13 U/L (0-41); Albumin Level 3.9 g/dL (3.5-5.2); Alkaline Phosphatase 85 IU/L (40-130); Aspartate Amino Transferase 14 U/L (0-40); Blood Urea Nitrogen 15 mg/dL (8-23); Calcium 9.3 mg/dL (8.5-10.5); Carbon Dioxide 25 mmol/L (22-29); Chloride 98 mmol/L (98-107); Globulin 3.2 g/dL (1.3-4.6); Glomerular Filtration Rate 55.9 mL/min (90-130); Glucose 118 mg/dL (65-115); Osmolality Calculated 281 mOsm/kg (285-295); Sodium 137 mmol/L (136-145); Total Bilirubin 0.9 mg/dL (0.15-1.2); Total Protein 7.1 g/dL (6.6-8.7)
[2019-07-28 10:54] LABS: INR 1.04 (0.8-1.2)
[2019-07-28 10:55] LABS: Partial Thromboplastin Time 29.7 SECONDS (23.9-36.7)
[2019-07-28] MEDS: iodixanol 320 mg/mL 100mL Btl IV ×2 (11:47→13:16)
[2019-07-28] MEDS: sodium chloride 0.9% 1,000 ML 999 ML IV (12:05)
--- NOTE | 2019-07-28 12:12 | CTR_ITS ---
PROCEDURE INFORMATION: Exam: CTA Angiogram of the Abdominal Aorta and Bilateral Lower Extremities (Run-off) With IV Contrast Exam date and time: 07/28/2019 12:57 PM Age: 63 years old Clinical indication: Abdominal pain; Acute; Prior surgery; Surgery date: 6+ months; Surgery type: Aortic graft; Additional info: Aortic graft; L le monophasic flow/numbness TECHNIQUE: Imaging protocol: CT angiogram of the abdominal aorta, pelvis and bilateral lower extremities with IV iodinated contrast. 3D rendering: MIP and/or 3D reconstructed images were created by the technologist. Radiation optimization: All CT scans at this facility use at least one of these dose optimization techniques: automated exposure control; mA and/or kV adjustment per patient size (includes targeted exams where dose is matched to clinical indication); or iterative reconstruction. Contrast material: VISI 320; Contrast volume: 95 ml; Contrast route: IV; COMPARISON: CT angio abdomen pelvis [id number] 04/04/2019 9:38 AM RADIATION DOSE METRICS: Total DLP: 2186.19 mGy-cm FINDINGS: Aorta: Slightly decreased 4.5 cm abdominal aortic aneurysm is measured on the sagittal images when compared with the previous exam of 4.6 cm. Celiac trunk and mesenteric arteries: Separate origin of the left hepatic artery from the abdominal aorta just superior to the celiac axis origin. Normal variant. Renal arteries: No occlusion or significant stenosis. Right iliac arteries: No occlusion or significant stenosis. Right femoral/popliteal arteries: The right calf and foot were imaged before the arterial contrast reached this area with no visible contrast in the distal popliteal artery and trifurcation arteries. Correlation with pulses and or Doppler exam may be helpful to document flow in this area which was not imaged on CTA runoff. 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 Continued stricture of the proximal aspect of the left common iliac artery endovascular stent. Left femoral/popliteal arteries: No occlusion or significant stenosis. Left infrapopliteal arteries: Three-vessel runoff to the left ankle with contrast in the left calf area. Liver: No mass. Gallbladder and bile ducts: Unremarkable. No calcified stones. No ductal dilation. Pancreas: Unremarkable. No mass. No ductal dilation. Spleen: One or more stable accessory splenules. Adrenals: Normal. No mass. Kidneys and ureters: Continued perfusion defect in the inferior pole right kidney. Stomach and bowel: Interval appearance of mild bowel wall thickening in the left colon with mild inflammation in pericolic fat consistent with mild infectious colitis, microvascular ischemic colitis or inflammatory bowel autoimmune colitis. Appendix: No evidence of appendicitis. Bladder: Unremarkable. No mass. Reproductive: Unremarkable as visualized. Intraperitoneal space: Interval free fluid in the dependent portion of the pelvis which is abnormal for a male. Probably secondary to colitis. Lymph nodes: No lymphadenopathy. Bones/joints: No acute fracture. No dislocation. Soft tissues: Unremarkable. Other veins: One or more calcified pelvic phleboliths. CT/CT angio abd aorta runof [id number] IMPRESSION: 1. 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 2. Continued stricture of the proximal aspect of the left common iliac artery endovascular stent. 3. Interval appearance of mild bowel wall thickening in the left colon with mild inflammation in pericolic fat consistent with mild infectious colitis, microvascular ischemic colitis or inflammatory bowel autoimmune colitis. 4. Interval free fluid in the dependent portion of the pelvis which is abnormal for a male. Probably secondary to colitis. 5. Continued perfusion defect in the inferior pole right kidney. 6. Slightly decreased 4.5 cm abdominal aortic aneurysm as measured on the sagittal images when compared with the previous exam of 4.6 cm. 7. The right calf and foot were imaged before the arterial contrast reached this area with no visible contrast in the distal right popliteal artery and trifurcation arteries. Correlation with pulses and or Doppler exam may be helpful to document flow in this area which was not imaged on CTA runoff. 8. Three-vessel runoff to the left ankle with contrast in the left calf area. Radiation Dose CTDIVOL = (mGy): DLP = 2186.19 (mGy-cm)
[2019-07-28] MEDS: morphine 4 mg/mL SDV 1 mL IVP (12:18)
[2019-07-28 12:20] LABS: Add Urine Microscopic? NO
[2019-07-28 12:36] LABS: Bilirubin Urine Neg (NEGATIVE); Blood Urine Neg (Negative); Glucose Urine UA Norm (Normal); Ketones Urine Negative (Negative); Leukocyte Esterase Urine Negative (Negative); Nitrate Urine Negative (Negative); Protein Urine Neg (Negative); Urine Appearance Clear (CLEAR); Urine Color Yellow (Yellow); Urobilinogen Urine Norm (Negative)
--- NOTE | 2019-07-28 16:00 | DCPLANNER ---
Addendum entered by Radha Felipe 07/28/19 16:45: The appointment is July at 3:[address] Montes. Original Note: operations program manager was asked to schedule a follow up appointment for patient with Dr. Montes at [facility]. operations program manager called [facility], spoke with Elsie, a follow up appointment was scheduled for July at 3:[address] Montes. operations program manager informed patient, and ED physician of the scheduled appointment. operations program manager also called [facility] and informed her that patient was seen in the ED and a follow up with Dr. Montes was needed. operations program manager informed of the scheduled appointment. operations program manager faxed [facility] the [facility].
--- NOTE | 2019-09-04 14:22 | DCPLANNER ---
Patient attended appointment scheduled for Dr. Montes on 07.31.19.
== END 2019-07-28 16:04 | disposition home or self-care (01) ==
PROVIDERS: Emergency Provider Physician Assistant; Family Provider Emergency Medicine Emergency Medical Services; PCP Emergency Medicine Emergency Medical Services
DX: I74.5 Embolism and thrombosis of iliac artery (principal); K52.9 Noninfective gastroenteritis and colitis, unspecified; Z79.82 Long term (current) use of aspirin; Z87.891 Personal history of nicotine dependence
CPT/HCPCS: 12345; 74177; 75635; 80053; 81003; 85025; 85610; 85730; 93926; 96361; 96374; 96375; 99283; 99284; J2270; J7030; Q9967

== ENCOUNTER 2019-08-06 11:14 | Observation (INO) | payer OTHER, SELFPAY ==
[2019-08-06] VITALS (34 sets, daily range): BP systolic 88–139; BP diastolic 53–99; PULSE 72–97; RESP 7–29; TEMP 36.6–36.8; O2SAT 93–100; BMI 32.1
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
[2019-08-06] MEDS: diphenhydrAMINE 50 mg Capsule PO (07:36)
[2019-08-06 07:44] LABS: Basophils # 0.1 10^3/uL (0.0-0.1); Basophils % 0.9 %; Eosinophils # 0.3 10^3/uL (0.0-0.8); Eosinophils % 2.5 %; Hemoglobin 15.4 g/dL (11.7-16.6); Lymphocytes # 2.8 10^3/uL (0.8-4.8); Lymphocytes % 26.9 %; Mean Corpuscular HGB Conc 33.5 g/dL (30.0-36.0); Mean Corpuscular Hemoglobin 30.1 pg (28.0-34.0); Mean Corpuscular Volume 89.8 fL (80-94); Mean Platelet Volume 9.3 fL (7.4-10.4); Neutrophils # 6.4 10^3/uL (1.8-7.7); Neutrophils % 60.4 %; Nucleated Red Blood Cells % 0 %; Platelet Count 357 10^3/cmm (130-400); Red Blood Count 5.12 10^6/uL (4.1-5.3); Red Cell Distribution Width 13.8 % (12.1-15.1); White Blood Count 10.5 10^3/uL (4.0-10.0)
[2019-08-06 07:56] LABS: Anion Gap 17.1 (5-19); Blood Urea Nitrogen 14 mg/dL (8-23); Calcium 9.8 mg/dL (8.5-10.5); Carbon Dioxide 23 mmol/L (22-29); Chloride 100 mmol/L (98-107); Glomerular Filtration Rate 67.8 mL/min (90-130); Glucose 132 mg/dL (65-115); Osmolality Calculated 280 mOsm/kg (285-295); Potassium 4.1 mmol/L (3.5-5.1); Sodium 136 mmol/L (136-145)
--- NOTE | 2019-08-06 09:13 | W.PM.OPSUD ---
Surgery/Procedure H&P Update DATE OF PROCEDURE: August 06, 2019 DATE H&P PERFORMED: 08/06/19 H&P UPDATE INFORMATION: I have reviewed H&P completed within last 30 days, I have examined patient prior to procedure and Changes to prior documentation as noted here (lifestyle limiting claudication of the left leg.) PREOP DIAGNOSIS: left leg claudication lifestyle limiting PLANNED PROCEDURE: Operation Date: 08/06/19 08:30 Proposed Procedures p Peripheral Diagnostic(Left) - Rosa Isela Villarreal MD PATIENT REASSESSED PRIOR TO SEDATION, WITH NO CHANGE NOTED: Yes PHYSICAL EXAM: alert, oriented x 3, clear to auscultation bilaterally and regular rate & rhythm AIRWAY EVAL/ANESTHESIA PLAN: normal airway, see other exam findings, ASA II, Risks, benefits & alternatives of sedation and/or procedure discussed and Patient agrees to continue as planned
[2019-08-06] MEDS: clopidogrel 300 mg Tablet PO (12:12)
[2019-08-06] MEDS: atorvastatin 40 mg Tablet PO (12:12)
[2019-08-06] MEDS: aspirin 81 mg EC Tablet PO (12:12)
[2019-08-06] MEDS: sodium chloride 0.9% 1,000 ML 100 ML IV ×2 (12:13→21:00)
[2019-08-06 15:26] LABS: Partial Thromboplastin Time 50.1 SECONDS (23.9-36.7)
[2019-08-06] MEDS: pantoprazole DR 40 mg Tablet PO (17:45)
[2019-08-06] MEDS: rivaroxaban 10 mg Tablet 20 MG PO (22:01)
[2019-08-07] VITALS (8 sets, daily range): BP systolic 109–137; BP diastolic 64–84; PULSE 83–98; RESP 17–20; TEMP 36.5–36.9; O2SAT 93–97
[2019-08-07 03:47] LABS: Basophils # 0.1 10^3/uL (0.0-0.1); Basophils % 0.8 %; Eosinophils # 0.2 10^3/uL (0.0-0.8); Eosinophils % 1.8 %; Hematocrit 42.6 % (42.0-52.0); Hemoglobin 14.3 g/dL (11.7-16.6); Lymphocytes % 23.4 %; Mean Corpuscular HGB Conc 33.6 g/dL (30.0-36.0); Mean Corpuscular Hemoglobin 31.3 pg (28.0-34.0); Mean Corpuscular Volume 93.2 fL (80-94); Monocytes % 7.8 %; Neutrophils # 8.3 10^3/uL (1.8-7.7); Nucleated Red Blood Cells % 0 %; Platelet Count 274 10^3/cmm (130-400); Red Blood Count 4.57 10^6/uL (4.1-5.3); Red Cell Distribution Width 14.3 % (12.1-15.1); White Blood Count 12.6 10^3/uL (4.0-10.0)
[2019-08-07 04:12] LABS: Anion Gap 15.2 (5-19); Blood Urea Nitrogen 13 mg/dL (8-23); Calcium 9.3 mg/dL (8.5-10.5); Carbon Dioxide 21 mmol/L (22-29); Chloride 103 mmol/L (98-107); Glomerular Filtration Rate 75.7 mL/min (90-130); Glucose 124 mg/dL (65-115); Osmolality Calculated 278 mOsm/kg (285-295); Potassium 4.2 mmol/L (3.5-5.1); Sodium 135 mmol/L (136-145)
[2019-08-07] MEDS: sodium chloride 0.9% 1,000 ML 100 ML IV (06:36)
[2019-08-07] MEDS: atorvastatin 40 mg Tablet PO (08:50)
[2019-08-07] MEDS: aspirin 81 mg EC Tablet PO (08:50)
[2019-08-07] MEDS: pantoprazole DR 40 mg Tablet PO (08:50)
[2019-08-07] MEDS: clopidogrel 75 mg Tablet PO (08:50)
[2019-08-07] MEDS: rivaroxaban 10 mg Tablet 20 MG PO (08:50)
--- NOTE | 2019-08-07 11:10 | PC.CHAP ---
Pastoral Care Encounter/Spiritual Assessment Type of Contact [] Declined meat puller visit [] Patient/Family/Request visit [] Outpatient visit [] Follow-up visit [] Physician referral [] Code/Alert [x] Routine visit [] Staff referral [] Actively dying [] Patient sleeping [] Family support [] [] Out of room [] Palliative care [] [] Receiving care in room [] Pre-surgical visit [] Trauma [] Long length of stay [] ICU visit [] Other: Relational/Emotional Strength [x] Patient feels connected with others/family/visitors/staff [] Distress [] Loneliness/isolation [] Abandonment Spirituality of Patient [x] Person of Kathleen [] Attends Buddhism of their Kathleen [x] Believes in Prayer [] Reads Bible or Buddhism materials [x] There are Spiritual issues to be addressed Metallurgical Lab Technician Interventions [x] Prayer [x] Active listening [x] Non-anxious presence [x] Spiritual/emotional support [] Crisis/trauma care [] Spiritual counseling [] Bereavement support [] Provided bereavement packet [] Provided Bible/devotional materials [] Provided toy/stuffed animal, coloring book to patient or family member [] Provided Communion [] Anointing/Summit [] Salvation [x] Completed spiritual assessment [] Other: Impact on Illness or Injury [] Angry [] Fearful [] Anxious [] Often cries [] Exhaustion [] Unable to work [] Unable to attend oriental orthodox [] Unable to walk/stand [] Unable to read [] Unable to drive [] Unable to eat/drink [] Unable to sleep [] Unable to be with family [] Patient intubated [x] Other: Summary Patient is awaiting discharge. Time spent with patient 5 minutes
--- NOTE | 2019-08-07 19:32 | PM.SDS ---
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 Balloon angioplasty followed by stent placement of ostial left common iliac artery was performed. Good angiographic result with good flow was restored. Postop course remained uncomplicated. This morning patient had good anterior posterior palpable pulse in the left groin. There is no hematoma or bruising on the right groin at the site of entry. Patient is started on Plavix and Xarelto since he has a thrombus burden on the left side in the common iliac. We will plan to continue Xarelto for 1 month and Plavix for 3 months. Aspirin has been discontinued. Continue rest of the medications. He is being discharged home in a stable and good condition. Review of Systems Eyes: Denies: photophobia ENMT: Denies: enlarged tonsils Home Meds/Allergies Home Medications and Allergies Home Medications Medication Instructions Recorded Confirmed Type atorvastatin 40 mg tablet 40 mg PO DAILY 05/06/19 08/06/19 History cyclobenzaprine 10 mg tablet 10 mg PO TID PRN 05/06/19 08/05/19 History fluticasone propionate 50 2 spray INTRANASAL DAILY PRN 05/06/19 08/06/19 History mcg/actuation nasal spray,suspension pantoprazole 40 mg tablet,delayed 40 mg PO BID tab 05/06/19 08/06/19 History release multivitamin [Multiple Vitamins] 1 tab PO DAILY 07/28/19 08/06/19 History vitamin B complex [B-Complex] 1 tab PO DAILY 07/28/19 08/06/19 History lactobacillus combination no.8 3 3,000 mmu cells PO DAILY 07/31/19 08/06/19 History billion cell capsule lisinopril 10 mg tablet 10 mg PO .every other day tab 07/31/19 08/06/19 History Allergies Allergy/AdvReac Type Severity Reaction Status Date / Time No Known Allergies Allergy Verified 08/05/19 12:24 PFSH Acute PFSH: Medical History (Updated 08/05/19 @ 00:00 by ) AAA (abdominal aortic aneurysm) Surgical History H/O endovascular stent graft for abdominal aortic aneurysm Family History Denies family history of CAD (coronary artery disease) Social History Smoking and tobacco status: former smoker Alcohol intake: never Vitals/I&O/Wt Last Vital Signs Temp 98.1 F 08/07/19 12:11 Pulse 94 08/07/19 12:11 Resp 20 H 08/07/19 12:11 BP 137/84 08/07/19 12:11 Pulse Ox 93 08/07/19 12:11 08/07/19 08/07/19 08/07/19 06:59 14:59 22:59 Intake Total 1260 / 3118.333 360 / 360 Output Total 700 / 2050 650 / 650 Balance 560 / 1068.333 -290 / -290 Weight last 48 hrs Weight 237 lb Physical Exam Narrative: EXAM NARRATIVE: GENERAL: Patient is alert, awake and oriented x3. NECK: No jugular vein distension. Pacemaker pacemaker HEENT: No cyanosis. No icterus. No pallor. HEART: Regular S1 and S2. No murmur, rub or gallop. LUNGS: Clear to auscultate bilaterally. ABDOMEN: Soft, nontender and nondistended. Positive bowel sounds. No guarding, rebound or tenderness. CENTRAL NERVOUS SYSTEM: Grossly nonfocal. EXTREMITIES: Lower extremities without edema bilaterally. Pulses palpable in the lower extremities, both dorsalis pedis and posterior tibial on the left side, right groin wound looks good no hematoma no bruising.. Const: COMMON NORMALS: alert Resp: COMMON NORMALS: clear to auscultation bilaterally AUSCULTATION: clear to auscultation bilaterally Neuro: SENSORIUM/ORIENTATION: Yes alert SSS Data Data Completed and Pending: Pending at discharge Category Date Time Status SUPERVISOR GRAPHITE request for service Routin e Exams 08/06/19 07:18 Taken Discharge Plan Discharge Patient Disposition: Home, Self-Care Condition: Stable Prescriptions: New clopidogrel 75 mg Tablet 75 mg PO DAILY Qty: 90 RF: 0 Xarelto 10 mg Tablet 15 mg PO DAILY Qty: 30 RF: 0 Continued Adult Probiotic 3 billion cell capsule 3,000 mmu cells PO DAILY RF: 0 lisinopril 10 mg tablet 10 mg PO .every other day RF: 0 pantoprazole 40 mg tablet,delayed release (DR/EC) 40 mg PO BID RF: 0 atorvastatin 40 mg tablet 40 mg PO DAILY RF: 0 cyclobenzaprine 10 mg tablet 10 mg PO TID PRN (Reason: Muscle Spasm) RF: 0 fluticasone propionate [Allergy Relief (fluticasone)] 50 mcg/actuation spray,suspension 2 spray INTRANASAL DAILY PRN (Reason: ALLERGY SYMPTOMS) RF: 0 multivitamin [Multiple Vitamins] Tablet 1 tab PO DAILY RF: 0 vitamin B complex [B-Complex] Tablet 1 tab PO DAILY RF: 0 hydrocodone-acetaminophen 5-325 mg tablet 1 tab PO Q6H PRN (Reason: pain) Qty: 14 RF: 0 Discontinued aspirin 81 mg tablet,delayed release (DR/EC) 81 mg PO DAILY RF: 0 Discharge Orders: Discharge Order (Routine); Ordered 08/07/19 Ordered By: Rosa Isela Nj Referrals: Rosa Isela Nj MD [Physician] - 1 month (You have [place] [facility] on September 09 at 2:30pm) Gurjit Montes MD [Physician] - 2 weeks (You have a follow[place] with Dr. Montes at [facility] on August 20 at 9:30am. ) Leatha Barrera FNP [Nurse Practitioner] - 1 week (You have a post procedure followup with SOFIYA Huitron at [facility] on August 13 at 8:45am) Discharge Diet: Cardiac Discharge Activity: Increase activity as tolerated Patient Instructions: Clopidogrel (By mouth), Rivaroxaban (By mouth), Peripheral Vascular Stent Placement (DC), Peripheral Vascular Angioplasty (DC) Activity Restrictions/Additional Instructions: Follow-up with Dr. Montes in 2 weeks. Follow-up with Leatha Barrera cardiology nurse practitioner in 1 week. Follow-up with Dr. nj in 4 weeks. If you notice blood in the urine or stool please call Dr. Williamson's office. Discharge Date/Time: 08/07/19 13:20 Attestations Medical Necessity Statement*: Patient will be discharged home today status post percutaneous angioplasty and stent placement of left common iliac artery Time Spent in Patient Care*: less than 30 min Specific Discharge Activities: Specific discharge activities: educating patient Quality Metrics Clinical Quality Measures: During this hospital stay, did patient experience: None Coding Level of Care Code New Pt Acute Family Services Specialist for Chg Fwd Patient Type New Exam Expanded Problem Focused Medical Decision Making Moderate Complexity
== END 2019-08-07 13:20 | disposition home or self-care (01) ==
LOC: CSU 11:14
PROVIDERS: Admitting Provider Internal Medicine Cardiovascular Disease; PCP Emergency Medicine Emergency Medical Services; Visit Provider Internal Medicine Cardiovascular Disease
DX: I70.221 Atherosclerosis of native arteries of extremities with rest pain, right leg (principal); L97.519 Non-pressure chronic ulcer of other part of right foot with unspecified severity; Z87.891 Personal history of nicotine dependence
CPT/HCPCS: 12345; 36415; 37221; 75625; 75716; 80048; 85025; 85610; 85730; 96360; 96361; C1725; C1769; C1876; C1887; C1894; G0378; J1644; J2001; J2250; J3010; J7030; Q0163; Q9967

== ENCOUNTER → 2019-08-14 09:52 | Outpatient (BNVA) | payer OTHER, SELFPAY | PROVIDERS: PCP Emergency Medicine Emergency Medical Services; Visit Provider Nurse Practitioner Family | DX: I10 Essential (primary) hypertension (principal); I73.9 Peripheral vascular disease, unspecified | CPT/HCPCS: 80048 ==

== ENCOUNTER 2019-10-17 09:04 | Day surgery (SDC) | payer OTHER, SELFPAY ==
[2019-10-15 09:45] VITALS: BMI 31.8
[2019-10-17 09:59] VITALS: BP 169/101; PULSE 74; RESP 18; TEMP 36.5; O2SAT 97
[2019-10-17] MEDS: sodium chloride 0.9% 1,000 ML 30 ML IV (10:10)
--- NOTE | 2019-10-17 10:20 | P.ANESASSM_ITS ---
Pre-Anesthetic Assessment Pre-Anesthetic Assessment: Height/Weight: Height 1.83 m Weight 106.594 kg Temp Pulse Resp BP Pulse Ox 97.7 F 74 18 169/101 97 10/17/19 09:59 10/17/19 09:59 10/17/19 09:59 10/17/19 09:59 10/17/19 09:59 Preop Diagnosis: p Proposed Procedure: Operation Date: 10/17/19 10:00 Proposed Procedures p Colonoscopy 15189 Z86.010(Not Applicable) - Ned Beltran MD Last intake: Intake Last Liquid Date 10/16/19 Last Liquid Time 20:00 Last Solid Date 10/15/19 Last Solid Time 18:00 Social: Social History: Tobacco (quit 2008) and No alcohol Exam: Pre-Anes Outpt Exam: alert, oriented x 3, clear to auscultation bilate rally and regular rate & rhythm Airway: Submandibular: WNL Cervical ROM: WNL MP: 2 Dentition: False (upper and lower) History/ROS: No significant history except as noted Pulmonary: Pulmonary: None reported CV/HEM: Comments: h/o AAA repair 02/2019 : : None reported Hepatic: Hepatic: None reported GI: GI: GERD (controlled) Metabolic: Metabolic: Hyperlipidemia Musc/skel: Musc/skel: None reported Neuropsych: Neuropsych: None reported Anesthetic Plan: ASA status: 2 Anesthesia: Anesthesia Evaluation and MAC Risk of > 500 ml blood loss (7ml/kg in children): No Meds/Allergies Current Medications: Current Medications Generic Name Dose Route Start Last Admin Trade Name Freq PRN Reason Stop Dose Admin Sodium Chloride 1,000 mls @ 30 ml s/hr 10/17/19 10:00 10/17/19 10:10 Sodium Chloride 0.9% IV 10/18/19 09:59 30 mls/hr .Q24H JORDY Administration PFSH Anesthesia PFSH: Medical History (Updated 09/22/19 @ 16:03 by Ned Beltran MD) AAA (abdominal aortic aneurysm) Hypertension Peripheral vascular disease Surgical History H/O endovascular stent graft for abdominal aortic aneurysm Family History Denies family history of Diabetes CAD (coronary artery disease) Clotting disorder Dementia Hyperlipidemia Psychiatric illness Chronic kidney disease (CKD) Suicide Anesthesia complication Bleeding disorder Family history of premature coronary artery disease Lung disease Cancer Hypertension Stroke Social History (Updated 09/22/19 @ 15:37 by VIPIN Simmons) Smoking and tobacco status: former smoker Alcohol intake: never History of recent travel: No Data Anesthesia Cardiac Studies: No Data to Display
--- NOTE | 2019-10-17 10:33 | W.PM.OPSUD ---
Surgery/Procedure H&P Update DATE OF PROCEDURE: October 17, 2019 DATE H&P PERFORMED: 08/06/19 PREOP DIAGNOSIS: p PLANNED PROCEDURE: Operation Date: 10/17/19 10:00 Proposed Procedures p Colonoscopy 32579 Z86.010(Not Applicable) - Ned Beltran MD
[2019-10-17 10:46] VITALS: BP 135/84; PULSE 72; RESP 16; TEMP 36.1; O2SAT 99
[2019-10-17 11:02] VITALS: BP 153/100; PULSE 76; RESP 16; TEMP 36.5; O2SAT 96
--- NOTE | 2019-10-17 12:07 | ANE.PACU2 ---
Inpatient post-anesthesia follow up: Airway intact: Yes Vital signs: Temperature 97.7 F Pulse Rate 76 Respiratory Rate 16 Blood Pressure 153/100 Pulse Oximetry 96 Oxygen Delivery Me thod Room Air Oxygen Flow Rate 2 Fraction of Inspir ed Oxygen Hydration adequate: Yes Nausea and vomiting: No Mental status: Baseline
== END 2019-10-17 11:15 | disposition home or self-care (01) ==
PROVIDERS: PCP Emergency Medicine Emergency Medical Services; Visit Provider Internal Medicine
PROC: 0DJD8ZZ Inspection of Lower Intestinal Tract, Via Natural or Artificial Opening Endoscopic (ICD-10-PCS; CPT 45378; principal; 2019-10-17 10:00)
DX: Z86.010 Personal history of colon polyps (principal); Z87.891 Personal history of nicotine dependence; K21.9 Gastro-esophageal reflux disease without esophagitis; E78.5 Hyperlipidemia, unspecified; I10 Essential (primary) hypertension
CPT/HCPCS: 12345; 45378; J2704; J7030

== ENCOUNTER 2020-10-08 07:46 | Outpatient (CLI) | payer OTHER, SELFPAY ==
--- NOTE | 2020-10-08 08:00 | CT_ITS ---
WS: [id number] CTA of the abdominal aorta. Additional two-dimensional coronal and sagittal reconstruction was perfor med. MIP images were also performed. 10/08/2020 Clinical Data: Xaa Comparison: CTA abdomen aorta with runoff, 07/28/2019. DLP: 2157.[address] scans at [facility] use at least one of these dose optimization techniques: automat ed exposure control; mA and/or kV adjustment per patient size (includes targeted exams where dose is matched to clinical indication); or iterative reconstruction. Findings: Vascular: The abdominal aorta shows an aneurysm of 4.0 cm. The stent graft extends from the infrarenal abdomina l aorta into the common iliac vessels. The left common iliac stent no longer shows the occlusion note d on the prior study. The celiac and superior mesenteric arteries show no occlusions. There is a left hepatic artery originating superior to the celiac artery unchanged. The renal arteries show no occlu sions or stenoses. There is a delay in the flow to the inferior aspect of the right kidney. The commo n iliac arteries show normal flow and the bifurcations into the internal and external iliac arteries are normal. The common femoral arteries show normal flow. The 3 minute delay shows no endoleak from the stent graft. Abdominal and pelvic findings: The lower lungs show no nodules, masses or effusions. The liver, spleen, gallbladder, pancreas and ad renal glands are normal. The kidneys show no cysts, masses or hydronephrosis. There is a delay in per fusion to the inferior pole right kidney unchanged. The stomach, small bowel and colon are unremarkab le. No abscess, adenopathy, ascites, mass, obstruction or free air is seen. There is no appendicitis or diverticulitis. The bladder is unremarkable. The prostate is enlarged with calcification in the wa ll. The bones of the lower thorax, lumbar spine, pelvis and hips show osteoarthritis of the vertebral bodies. CT/CT angio abdomen pelvis 41800 Impression: 1. Intact abdominal aortic iliac stent graft with no endoleak and no change. 2. Negative for acute intra-abdominal or pelvic abnormalities. 3. Left common iliac artery no longer occluded.
[2020-10-08 08:30] LABS: Blood Urea Nitrogen 12 mg/dL (8-23); Glomerular Filtration Rate 55.6 mL/min (90-130)
[2020-10-08] MEDS: iodixanol 320 mg/mL 100mL Btl IV (08:46)
== END 2020-10-08 07:47 | disposition home or self-care (01) ==
PROVIDERS: PCP Emergency Medicine Emergency Medical Services; Visit Provider Thoracic Surgery (Cardiothoracic Vascular Surgery)
DX: I71.4 Abdominal aortic aneurysm, without rupture (principal)
CPT/HCPCS: 74174; 82565; 84520; Q9967

== ENCOUNTER 2020-10-27 08:01 | Outpatient (CLI) | payer OTHER, SELFPAY ==
[2020-10-27 08:07] VITALS: BP 123/73; PULSE 102; RESP 18; TEMP 37.1; O2SAT 95
[2020-10-27 09:05] VITALS: BP 123/73; PULSE 93; RESP 16; TEMP 37.1; O2SAT 95
== END 2020-10-27 08:02 | disposition home or self-care (01) ==
LOC: OPS 08:02
PROVIDERS: PCP Emergency Medicine Emergency Medical Services; Visit Provider Family Medicine
DX: U07.1 COVID-19 (principal)
CPT/HCPCS: 96365

== ENCOUNTER 2020-11-16 12:20 | Outpatient (CLI) | payer OTHER, SELFPAY ==
--- NOTE | 2020-11-16 | MR_ITS ---
WS: [id number] MRI CERVICAL SPINE NONCONTRAST HISTORY: CERVICAL RADICULOPATHY COMPARISON: None available. Technique: Multiplanar, multisequence noncontrast imaging of the cervical spine. Posterior alignment is normal. Mild disc space narrowing and desiccation. Endplate osteophytes throug hout the cervical spine. No marrow edema or fracture. Subtle area of increased signal in the anterior cervical cord at C6 probably represent an area of mye lomalacia. Increased signal measures 7 mm in length. Craniocervical junction, C1 and C2 relationship, odontoid process and soft tissues are normal. C2-C3: Shallow central disc protrusion and foraminal osteophytes. No stenosis. C3-C4: Mild diffuse osteophytic ridging and disc bulging. Central disc protrusion with near contact u kristie the ventral thecal sac. C4-C5: Diffuse osteophytic ridging with a central disc protrusion. Disc contacting the ventral thecal sac. Mild central and foraminal stenosis. C5-C6: Moderate annular disc bulging with osteophytic ridging. Disc osteophyte complexes extending ce ntrally and into the neural foramen. Moderate central and bilateral foraminal stenosis. C6-C7: Diffuse annular disc bulging and osteophytic ridging. RIGHT paracentral disc protrusion contac ts the ventral thecal sac. Effacement of CSF. Moderate central and LEFT foraminal stenosis. Mild fora isabella stenosis on the RIGHT. C7-T1: Normal. Paraspinal soft tissue are normal. MR/MR cervical spin wo con* [id number] IMPRESSION: 1. Multilevel degenerative disc disease and osteophytosis with encroachment up on the cervical spine. 2. Moderate central LEFT foraminal stenosis at C6-7 due to combination of disc and osteophyte disease. 3. Moderate central and bilateral foraminal stenosis at C5-6 due to disc and o steophyte disease. 4. Mild central and foraminal stenosis at C4-5. 5. Subtle area of myelomalacia involving the ventral cervical cord at C6.
== END 2020-11-16 12:21 | disposition home or self-care (01) ==
LOC: RADSHAW 12:22
PROVIDERS: PCP Emergency Medicine Emergency Medical Services; Visit Provider Emergency Medicine Emergency Medical Services
DX: M54.12 Radiculopathy, cervical region (principal); M50.30 Other cervical disc degeneration, unspecified cervical region; M25.78 Osteophyte, vertebrae; M48.02 Spinal stenosis, cervical region; G95.89 Other specified diseases of spinal cord
CPT/HCPCS: 72141

== ENCOUNTER 2021-01-17 14:52 | Outpatient (CLI) | payer OTHER, SELFPAY ==
--- NOTE | 2021-01-17 15:15 | MR_ITS ---
WS: [id number] MRI LUMBAR SPINE NONCONTRAST HISTORY: LBP COMPARISON: None available. TECHNIQUE: Sagittal and axial multisequence imaging is submitted. Central disc protrusion at C5-6 causing contact on the ventral cervical cord. Normal lumbar alignment with no compression fractures or marrow edema. Disc spaces and vertebral body heights are well-preserved. Conus terminates normally at L1-2 disc level. L1-L2: Small amount of fluid in the facet joints. No stenosis. L2-L3: Asymmetric facet joint arthritis greatest on the RIGHT. No stenosis. L3-L4: Mild disc bulging. LEFT foraminal disc protrusion with annular fissures. No significant contac t on the nerve roots. Mild bilateral facet joint arthritis. L4-L5: Mild diffuse annular disc bulge. Disc and osteophyte extends into the foramen causing mild russ ateral foraminal stenosis. Very minimal disc contact on the LEFT traversing L5 nerve root but no high -grade stenosis. L5-S1: Mild disc bulging. Mild encroachment upon the ventral thecal sac but no contact on the S1 nerv e roots. Moderate facet joint arthritis on the LEFT. Mild bilateral foraminal narrowing. There is danielle y slight disc and osteophyte contact on the L5 nerve roots. Status post endovascular grafting of the abdominal aortic aneurysm. Maximum diameter of the aneurysm 3.8 cm. No adjacent hemorrhage or fluid. MR/MR lumbar spine wo con* [id number] IMPRESSION: 1. LEFT foraminal disc protrusion with annular fissures at L3-4 without signif icant contact on the nerve roots. 2. Minimal disc contact on the LEFT traversing L5 nerve root with only mild bi lateral foraminal stenosis. 3. Moderate facet joint arthritis on the LEFT at L5-S1. Very minimal disc and osteophyte contact on the L5 nerve roots. 4. No high-grade stenosis.
== END 2021-01-17 14:53 | disposition home or self-care (01) ==
PROVIDERS: PCP Emergency Medicine Emergency Medical Services; Visit Provider Emergency Medicine Emergency Medical Services
DX: M51.26 Other intervertebral disc displacement, lumbar region (principal); M47.817 Spondylosis without myelopathy or radiculopathy, lumbosacral region
CPT/HCPCS: 72148

== ENCOUNTER → 2021-11-11 08:59 | Outpatient (BNVA) | payer OTHER, SELFPAY | PROVIDERS: PCP Emergency Medicine Emergency Medical Services; Visit Provider Internal Medicine Cardiovascular Disease | DX: I73.9 Peripheral vascular disease, unspecified (principal); I10 Essential (primary) hypertension; E78.5 Hyperlipidemia, unspecified; Z95.828 Presence of other vascular implants and grafts; Z87.891 Personal history of nicotine dependence | CPT/HCPCS: 99214 ==